=== PATIENT | female | born 1985 | race Caucasian/White ===

== ENCOUNTER 2018-11-16 10:45 | Day surgery (SDC) | payer OTHER ==
--- NOTE | 2018-11-13 16:33 | History and Physical Report ---
History of Present Illness Date of examination: 11/11/18 History of present illness: Patient has been reassessed/reevaluated. H&P has been reviewed. No interval changes. This is a 33 years old female who presents with complains of metrorrhagia, but denies abnormal pap smears, menorrhagia, dysmenorrhea, dyspareunia, post-coital bleeding, abnormal periods, pelvic pain, abnormal vaginal discharge, breast mass or lumps, depression, anxiety, urinary symptoms, chest pain, palpitations, shortness of breath, leg swelling, back pain, abdominal pain, headaches and bowel problems. The patient notes that she is sexually active and does not use contraception. The patient reports that she has irregular menses. . The patient complains of dysmenhorrhea and cramping, but denies spotting, menses, heavy bleeding, lack of menses, she may be , history of thyroid disease, history of fibroids, history of bleeding disorders, lightheadness, orthostatic symptoms and fatigue. Menstrual periods have been irregular. Inte rval between menses is 22 days and 28 days. Menstrual flow lasts 5 days. Patient's work up has included hysterosonogram which revealed a submucosal myoma. Patient's symptoms when present disrupts her normal daily activities. Patient desires definitive treatment Vital Signs: Patient Profile: 33 Years Old Female Height: 64 inches (162.56 cm) Weight: 95 pounds (43.18 kg) BMI: 16.30 Past History : 1 Term Births: 1 Premature Births: 0 Living Children: 1 Para: 1 Mult. Births: 0 Prev : 1 Aborta: 0 Elect. Ab: 0 Spont. Ab: 0 Ectopics: 0 # 1 Delivery date: 08/22/2010 Weeks Gestation: 41 Delivery type: Delivery location: [facility] Sex: Male weight: 9-11 Comments: too big [employer] History Operations: (2010) Infection History HIV Risk Eval: no Current Allergies (reviewed today): No known allergies Past Medical History: Negative Past Medical History Past Surgical History: (2010) Social History: Patient is Smoking History: Patient has never smoked. Risk Factors: Smoked Tobacco Use: Never smoker Smokeless Tobacco Use: Never Passive smoke exposure: no Drug use: no HIV high-risk behavior: no Alcohol use: no Exercise: yes Seatbelt use: 100 % Review of Systems General Denies fever, chills, sweats, anorexia, fatigue, weakness, malaise, weight loss and sleep disorder. Complains of menorrhagia, abnormal vaginal bleeding and pelvic pain. Denies vaginal discharge, incontinence, dysuria, hematuria, urinary frequency, amenorrhea, genital sores, decreased libido, painful periods, painful sex, urinary urgency, hot flashes, vaginal dryness, vaginal itching and vaginal odor. CV Denies chest pains, palpitations, syncope, dyspnea on exertion, orthopnea, PND and peripheral edema. Resp Denies cough, dyspnea at rest, excessive sputum, hemoptysis, wheezing and pleurisy. GI Denies nausea, vomiting, diarrhea, constipation, change in bowel habits, abdominal pain, melena, hematochezia, jaundice, gas/bloating, indigestion/heartburn, dysphagia and odynophagia. Breast Denies left breast lump, right breast lump, nipple discharge, bloody discharge from nipple, breast pain, abnormal mammogram and breast enlargement. Psych Complains of anxiety. Denies depression, irritability and mood swings. Past History Past Medical History: other (See HPI) Past Surgical History: Other (See HPI) Social history: other (See HPI) Family history: other (See HPI) Medications and Allergies Allergies Allergy/AdvReac Type Severity Reaction Status Date / Time No Known Allergies Allergy Unverified 11/11/18 16:10 Home Medications Medication Instructions Recorded Confirmed Last Taken Type No Known Home Medications [No 11/12/18 11/12/18 Unknown History Reported Home Medications] Review of Systems Constitutional: other (See HPI) Exam - Physical Exam Narrative exam: HEENT: normocephalic, no lesions or deformities Skin no significant abnormal lesions or rashes. .Tatoo(s) are present Chest: respiratory effort normal, clear to auscultation Breasts: skin/areolae normal, no nipple discharge, no erythema/warmt h/tenderness, and axillae normal. Fibrocystic changes bilateral CV: regular, normal S1-S2, no murmur, no rub, no gallop Abdomen: soft, non-tender, no masses, bowel sounds normal Well healed vertical surgical scar Musculoskeletal: grossly normal ROM in joints, no joint tenderness or muscle weakness Neuro: no gross anomalities Extremities: no clubbing, cyanosis, or edema [employer] Exams Vulva/Vagina: normal appearance, no discharge, lesions. No evidence of cystocele or rectocele. Cervix: normal appearance, no lesions, no discharge Uterus: unable to palpate due to patient's guarding Adnexae: unable to palpate due to patient's guarding Rectovaginal: exam defered Results - Labs CBC & Chem 7: 11/16/18 11:25 Assessment and Plan - Patient Problems (1) Submucous leiomyoma of uterus Current Visit: No Status: Acute Plan to address problem: Diagnosis explained to patient . Questions answered. Discussed with patient various medical, surgical and radiological therapies common for treatment i ncluding myomectomy hysterectomy and uterine artery embolization Patient desires hysteroscopic myomectomy Patient desires fertility Discussed risk of surgery including infection, bleeding and risk of perforating her uterus. Questions answered. Patient understands and desires to proceed (2) Irregular menstrual bleeding Current Visit: No Status: Acute Plan to address problem: Problably secondary to #1
[2018-11-16] MEDS ORDERED: DEMEROL IV PRN (11:19)
[2018-11-16] MEDS ORDERED: DILAUDID IV PRN (11:19)
[2018-11-16] MEDS ORDERED: SUBLIMAZE IV PRN (11:19)
[2018-11-16] MEDS ORDERED: ZOFRAN IV PRN (11:19)
--- NOTE | 2018-11-16 11:19 | Anesthesia Consultation ---
Anesthesia Consult and Med Hx Date of service: 11/16/18 - Airway Anesthetic Teeth Evaluation: Good ROM Head & Neck: Adequate Mental/Hyoid Distance: Adequate Mallampati Class: Class II Intubation Access Assessment: Good - Pulmonary Exam CTA: Yes - Cardiac Exam Cardiac Exam: RRR - Pre-Operative Health Status ASA Pre-Surgery Classification: ASA1 Proposed Anesthetic Plan: General - Central Nervous System Hx Psychiatric Problems: No - Other Systems Hx Cancer: No
[2018-11-16] MEDS ORDERED: LACTATED RINGERS 1,000 ML IV SCH (12:00)
[2018-11-16 12:05] LABS: Basophils % (Auto) 0.7 % (0.0-1.8); Eosinophils # (Auto) 0.1 K/mm3 (0.0-0.4); Eosinophils % (Auto) 1.4 % (0.0-4.3); Hematocrit 37.7 % (30.3-42.9); Hemoglobin 12.5 gm/dl (10.1-14.3); Lymphocytes # (Auto) 1.9 K/mm3 (1.2-5.4); Lymphocytes % (Auto) 43.7 % (13.4-35.0); Mean Corpuscular HGB Conc 33 % (30-34); Mean Corpuscular Volume 81 fl (79-97); Monocytes # (Auto) 0.5 K/mm3 (0.0-0.8); Monocytes % (Auto) 12.2 % (0.0-7.3); Platelet Count 259 K/mm3 (140-440); Red Blood Count 4.63 M/mm3 (3.65-5.03); Red Cell Distribution Width 13.8 % (13.2-15.2)
--- NOTE | 2018-11-16 12:19 | Anesthesia Day of Surgery ---
Anesthesia Day of Surgery - Day of Surgery Patient Examined: Yes Patient H&P Reviewed: Yes Patient is NPO: Yes Beta Blockers: No Cardiac Clearance: No Pulmonary Clearance: No
[2018-11-16] MEDS ORDERED: XYLOCAINE MPF 2% ONE (12:46)
[2018-11-16] MEDS ORDERED: SUBLIMAZE ONE (12:47)
[2018-11-16] MEDS ORDERED: DIPRIVAN 10 MG/ML IV ONE (12:47)
[2018-11-16] MEDS ORDERED: TORADOL ONE (12:55)
[2018-11-16] MEDS ORDERED: DECADRON ONE (12:55)
[2018-11-16] MEDS ORDERED: ZOFRAN ONE (12:55)
--- NOTE | 2018-11-16 13:54 | Operative Report ---
Operative Report Operative Report: Date of procedure: 11/16/2018 Pre-operative diagnosis: Submucosal myoma Post-operative diagnosis: Same Procedure name(s): Operative hysteroscopy with MyoSure with myomectomy Surgeon: David Riggs MD Enterprise Application Developer: [] Anesthesia: Gen. EBL: Minimal Complications: None Findings: Patient with a posterior wall uterine mass myoma. Bilateral tubal ostia was seen. Specimen(s): Uterine mass Procedure: Patient was brought into the operating room, where general anesthesia was induced without any difficulty. Patient was placed in dorsal lithotomy position. Prep and drape in the usual sterile manner. Timeout procedure was performed. The patient's bladder was emptied with a red rubber catheter. Speculum was placed in the vagina. Tenaculum was placed at 12:00 on the cervix. The cervical os was dilated to a 19 Wallisian diameter. The hysteroscope was placed and the findings noted above. The MyoSure device was primed. The device was placed through the cervical os. The mass was then removed using the MyoSure. The mass was completely removed with no evidence of puncture on the uterine wall. All instruments were then removed. The patient was awakened in the operating room and accompanied to recovery room in good condition.
--- NOTE | 2018-11-16 13:59 | Short Stay Summary ---
Short Stay Documentation Date of service: 11/16/18 - History H&P: dictated Past Medical History: other (See HPI) Past Surgical History: Other (See HPI) Social history: other (See HPI) - Allergies and Medications Current Medications: Allergies No Known Allergies Allergy (Unverified 11/11/18 16:10) Home Medications Medication Instructions Recorded Confirmed Last Taken Type Acetaminophen/Codeine [Tylenol #3] 1 tab PO Q4HR PRN #10 tablet 11/16/18 Unknown Rx Doxycycline [Vibramycin CAP] 100 mg PO Q12HR #14 capsule 11/16/18 Unknown Rx Ibuprofen [Motrin 800 MG tab] 800 mg PO Q6H PRN #30 tablet 11/16/18 Unknown Rx Active Medications Fentanyl (Sublimaze) 50 mcg IV Q5MIN PRN PRN Reason: Pain , Severe (7-10) Stop: 11/16/18 23:59 Hydromorphone HCl (Dilaudid) 0.5 mg IV Q10MIN PRN PRN Reason: Pain , Severe (7-10) Stop: 11/16/18 23:59 Lactated Ringer's (Lactated Ringers) 1,000 mls @ 42 mls/hr IV DIRECT ROLY Last Admin: 11/16/18 11:58 Dose: 42 mls/hr Documented by: Meperidine HCl (Demerol) 25 mg IV ONCE PRN PRN Reason: Shivering Stop: 11/16/18 23:59 Ondansetron HCl (Zofran) 4 mg IV ONCE PRN PRN Reason: Nausea And Vomiting - Brief post op/procedure progress note Date of procedure: 11/16/18 (see dictated operative note) Condition: stable - Hospital course Hospital course: Patient was admitted underwent the above him procedure without any complications. Patient will be discharged with follow-up in office in 1-2 weeks for postop check. - Disposition Condition at discharge: Good - Discharge Diagnoses (1) Submucous leiomyoma of uterus Status: Acute (2) Irregular menstrual bleeding Status: Acute Short Stay Discharge Plan Activity: no restrictions, advance as tolerated Diet: regular Additional Instructions: Patient office for fever chills nausea vomiting or pain uncontrolled by pain relief. Follow up with: PRIMARY CARE, [Primary Care Provider] - 7 Days Prescriptions: Ibuprofen [Motrin 800 MG tab] 800 mg PO Q6H PRN #30 tablet PRN Reason: Pain Acetaminophen/Codeine [Tylenol #3] 1 tab PO Q4HR PRN #10 tablet PRN Reason: Pain Doxycycline [Vibramycin CAP] 100 mg PO Q12HR #14 capsule
[2018-11-16 14:56] VITALS: BP 114/64
--- NOTE | 2018-11-16 18:06 | Post Anesthesia Evaluation ---
- Post Anesthesia Evaluation Patient Participated: Yes Airway Patent: Yes Stable Respiratory Function: Yes Nausea/Vomiting: No Temp > 96.8F: Yes Pain Manageable: Yes Adequeate Hydration: Yes Anesthesia Complications: No
== END 2018-11-16 10:46 | disposition home or self-care (01) ==
LOC: OR 10:45
PROVIDERS: ATTEND Obstetrics & Gynecology
DX: D25.0 Submucous leiomyoma of uterus (principal); N85.8 Other specified noninflammatory disorders of uterus; Z79.899 Other long term (current) drug therapy; Z98.891 History of uterine scar from previous surgery; Z98.890 Other specified postprocedural states
CPT/HCPCS: 36415; 58561; 81025; 85025; 86850; 86900; 86901; 88305; C1782; J1100; J1885; J2405; J2704; J3010; J7120